=== PATIENT | male | born 1965 | race American Indian/Alaskan Native ===

== ENCOUNTER 2018-03-27 03:13 | Emergency (ER) | payer BC ==
[2018-03-27 04:01] VITALS: BP 153/90; PULSE 63; RESP 16; TEMP 98.7; O2SAT 98
--- NOTE | 2018-03-27 04:08 | ED PDOC ---
Lower Extremity Pain/Injury Time Seen by Provider: 03/27/18 04:07 Chief Complaint (Nursing): Lower Extremity Problem/Injury Chief Complaint (Provider): right toe pain History Per: Patient (52 y/o male here with right toe pain noted x few days. Patient googled and is now concerned for gout. Has no prior h/o gout. Took advil at7 pm) Past Medical History Reviewed: Historical Data, Nursing Documentation, Vital Signs Vital Signs: Last Vital Signs Temp 98.7 F 03/27/18 03:59 Pulse 63 03/27/18 03:59 Resp 16 03/27/18 03:59 BP 153/90 H 03/27/18 03:59 Pulse Ox 98 03/27/18 03:59 - Family History Family History: States: Unknown Family Hx - Home Medications Home Medications: Ambulatory Orders Medication Instructions Recorded Cephalexin [Keflex] 500 mg PO TID #21 capsule 03/27/18 Ibuprofen [Motrin] 600 mg PO Q8 PRN #21 tab 03/27/18 - Allergies Allergies/Adverse Reactions: Allergies Allergy/AdvReac Type Severity Reaction Status Date / Time No Known Allergies Allergy Verified 10/04/14 17:07 Review of Systems ROS Statement: Except As Marked, All Systems Reviewed And Found Negative Physical Exam - Reviewed Nursing Documentation Reviewed: Yes Vital Signs Reviewed: Yes - Physical Exam Appears: Positive for: Well, Non-toxic, No Acute Distress Head Exam: Positive for: ATRAUMATIC, NORMAL INSPECTION, NORMOCEPHALIC Skin: Positive for: Normal Color, Warm, DRY Eye Exam: Positive for: EOMI, Normal appearance, PERRL ENT: Positive for: Normal ENT Inspection Neck: Positive for: Normal, Painless ROM Cardiovascular/Chest: Positive for: Regular Rate, Rhythm Respiratory: Positive for: CNT, Normal Breath Sounds Gastrointestinal/Abdominal: Positive for: Normal Exam, Soft Back: Positive for: Normal Inspection Extremity: Positive for: Normal ROM, Tenderness (swelling/mild erythema distal phalanx great toe right foot.) Neurologic/Psych: Positive for: Alert, Oriented - ECG O2 Sat by Pulse Oximetry: 98 - Progress ED Course And Treament: xry foot: no fx Disposition - Clinical Impression Clinical Impression: Toe pain, right - Patient ED Disposition Is Patient to be Admitted: No - Disposition Referrals: Podiatry Clinic [Outside] Disposition: Routine/Home Disposition Time: 04:37 Condition: FAIR Prescriptions: Cephalexin [Keflex] 500 mg PO TID #21 capsule Ibuprofen [Motrin] 600 mg PO Q8 PRN #21 tab PRN Reason: Pain, Moderate (4-7) Instructions: Toe Injury (DC)
--- NOTE | 2018-03-27 08:26 | RAD ---
Date of service: 03/27/2018 PROCEDURE: Right Foot Radiographs. HISTORY: toe pain COMPARISON: None. FINDINGS: BONES: No acute fracture or destructive bony lesion identified. JOINTS: Normal. SOFT TISSUES: Normal. OTHER FINDINGS: None. IMPRESSION: Normal right foot radiographs.
== END 2018-03-27 04:54 | disposition home or self-care (01) ==
LOC: H.ER 03:13
DX: M79.674 Pain in right toe(s) (principal)